=== PATIENT | male | born 1995 | race Caucasian/White ===

== ENCOUNTER 2017-12-27 12:23 | Emergency (ER) | payer SELFPAY ==
[2017-12-27] MEDS ORDERED: Adacel (T-DAP) 0.5 ML VIAL ONE (13:04)
[2017-12-27] MEDS ORDERED: Silver Sulfadiazine 1% Cream 50 GM JAR ONE (13:08)
[2017-12-27] MEDS ORDERED: Silver Sulfadiazine 1% Cream 50 GM JAR TOP SCH (13:15)
== END 2017-12-27 13:32 | disposition home or self-care (01) ==
LOC: ERS 12:23
DX: T23.231A Burn of second degree of multiple right fingers (nail), not including thumb, initial encounter (principal); F17.210 Nicotine dependence, cigarettes, uncomplicated; X19.XXXA Contact with other heat and hot substances, initial encounter
CPT/HCPCS: 16020; 90471; 90715